=== PATIENT | male | born 1980 | race Caucasian/White ===

== ENCOUNTER 2018-03-17 20:00 | Emergency (ER) | payer MEDICAID ==
[~2018-03-17] VITALS: Ht 188 cm; Wt 91.0 kg
[2018-03-17] MEDS ORDERED: METHYLPREDNISOLONE SOD SUCC 125 MG/2 ML VIAL IM ONE (23:15)
[2018-03-18 00:32] VITALS: BP 114/65
== END 2018-03-18 00:33 | disposition home or self-care (01) ==
LOC: ER 21:43
DX: L50.9 Urticaria, unspecified (principal); F17.200 Nicotine dependence, unspecified, uncomplicated
CPT/HCPCS: 96372; 99283; J2930

== ENCOUNTER 2018-03-21 14:28 | Emergency (ER) | payer MEDICAID ==
[~2018-03-21] VITALS: Ht 188 cm; Wt 91.0 kg
[2018-03-21 17:16] VITALS: BP 135/89
== END 2018-03-21 19:20 | disposition home or self-care (01) ==
LOC: ER 14:28
DX: B86 Scabies (principal); R03.0 Elevated blood-pressure reading, without diagnosis of hypertension
CPT/HCPCS: 99282